=== PATIENT | female | born 1950 | race Caucasian/White ===

== ENCOUNTER 2018-09-04 13:31 | Emergency (ER) | payer OTHER ==
[~2018-09-04] VITALS: Ht 162.6 cm; Wt 63.4 kg
[2018-09-04 13:39] VITALS: Ht 162.6 cm; Wt 63.4 kg
[2018-09-04] MEDS ORDERED: IBUPROFEN 600 MG TAB PO ONE (15:00)
[2018-09-04] MEDS ORDERED: IBUP-1542 PO (15:26)
[2018-09-04 16:20] VITALS: BP 152/74; PULSE 86; RESP 20
--- NOTE | 2018-09-04 16:29 | ERD ---
ER Documentation Chief Complaint Chief Complaint L wrist pain&dizziness s/p [facility] AM denies syncope/hit head HPI 67-year-old woman complains of left distal forearm/wrist pain after mechanical fall forward on her outstretched left upper extremity when she lost balance walking a large [place] kap[employer] that she lost control of. She denies head or neck injury, no loss of consciousness, no complaints of chest pain or shortness of breath, no complaints of paresis or paresthesias. Patient is ambulatory in the ED and was so at the scene and has no complaints of back or hip pain. ROS All systems reviewed and are negative except as per history of present illness. Medications Home Meds Active Scripts Ibuprofen* (Motrin*) 600 Mg Tab, 600 MG PO Q8 PRN for PAIN AND/OR INFLAMMATION, #30 TAB Prov:EMMIE RIVERA MD 09/04/18 Allergies Allergies: Coded Allergies: No Known Allergy (Unverified , 09/04/18) PMhx/Soc None Medical and Surgical Hx: pt denies Medical Hx, pt denies Surgical Hx Hx Alcohol Use: No Hx Substance Use: No Hx Tobacco Use: No Smoking Status: Never smoker FmHx Family History: No diabetes Physical Exam Vitals Vital Signs Date Temp Pulse Resp B/P (MAP) Pulse Ox O2 O2 Flow FiO2 Time Delivery Rate 09/04/18 36.6 14:46 09/04/18 97.9 80 20 177/77 98 13:39 (110) Physical Exam GENERAL: Well-developed, well-nourished, well-hydrated, in no apparent distress, looks nontoxic in appearance HEENT: Moist mucous membranes, pink conjunctiva, no cervical spine tenderness or step-off deformities, no goiter, no jaundice or icterus, extraocular movements intact without pain. No submandibular induration, and no pharyngeal erythema NEURO: Alert and oriented 3, cranial nerves II through XII intact bilaterally, pupils equal round reactive to light, no focal deficits or facial asymmetry, sensation intact distally Strength 5/5 in upper and lower extremities bilaterally CARDIAC: Regular rate and rhythm, no murmurs rubs or gallops LUNGS: Clear bilaterally no wheezing crackles or stridor SKIN: Warm and dry to touch, no abrasions, contusions, or hematomas, no lacerations, no ecchymosis, no target lesions, and without ulcers EXTREMITIES: No clubbing cyanosis or edema, calves are bilaterally symmetrical, no Homans sign, no popliteal cord sign. Distal pulses equal and bilateral Results 24 hrs Current Medications Medications Dose Sig/Lilly Start Time Status Last (Trade) Ordered Route PRN Stop Time Admin Dose Reason Admin Ibuprofen 600 mg ONCE ONCE 09/04/18 DC 09/04/18 (Motrin) PO 15:00 14:46 09/04/18 15:01 Procedures/MDM One AP view of the chest performed, read by me reveals no acute infiltrates, normal mediastinum, sharp costophrenic and cardiac borders, no air under the diaphragm. Otherwise unremarkable chest x-ray. Three-view x-ray of the left wrist performed, read by me reveals a nondisplaced distal left radius fracture no other fracture dislocation noted. No scaphoid bone fracture noted. Patient has no snuffbox tenderness to touch and no obvious hematoma but there is mild soft tissue tenderness over the left distal radius, I suspect fracture by x-ray will have to be repeated in 2-4 weeks. I recommend that she follow-up with PMD and orthopedic surgeon for continued outpatient management, her injury is nonsurgical although she may require cast placement. Left upper extremity placed in a volar wrist splint. Splint Assessment: Neurovascularly intact post splint placement with good fit. Patient feels much better at this time, and vital signs are normal, symptoms have improved. I did give strict instructions to return to the ED if symptoms continue or worsen, patient will otherwise follow-up with primary care physician. Patient understood instructions and agreed to plan. Disclaimer: Inadvertent spelling and grammatical errors are likely due to EHR/dictation software use and do not reflect on the overall quality of patient care. Also, please note that the electronic time recorded on this note does not necessarily reflect the actual time of the patient encounter. Departure Diagnosis: Primary Impression: Distal radius fracture, left Encounter type: initial encounter Fracture type: closed Fracture morphology: Colles' Qualified Codes: S52.532A - Colles' fracture of left radius, initial encounter for closed fracture Condition: Good Patient Instructions: Fracture, Upper Extremity, Fracture, Wrist [General] Referrals: ANDREW FUNES MD,IN EMMIE HARO MD, MD Sep 04, 2018 16:28
== END 2018-09-04 16:45 | disposition home or self-care (01) ==
LOC: E/R 13:31
DX: S52.532A Colles' fracture of left radius, initial encounter for closed fracture (principal); R07.9 Chest pain, unspecified; W18.30XA Fall on same level, unspecified, initial encounter; Y92.9 Unspecified place or not applicable
CPT/HCPCS: 71045